=== PATIENT | female | born 1995 | race Caucasian/White ===

== ENCOUNTER 2021-06-05 14:18 | Emergency (ER) | payer SELFPAY ==
--- NOTE | 2021-06-05 14:38 | EDM.PDOC ---
ED HPI GENERAL MEDICAL PROBLEM - General Chief Complaint: LEAD APPLICATION ARCHITECT Problem Stated Complaint: ABDOMINAL PAIN Time Seen by Provider: 06/05/21 14:19 Source of Information: Reports: Patient History Limitations: Reports: No Limitations - History of Present Illness INITIAL COMMENTS - FREE TEXT/NARRATIVE: 26-year-old female no past medical history no past surgical history presents for abdominal pain. Patient was referred from walk-in clinic for potential surgical etiology of pain. Patient notes that she was having some tolerable pain for the last 3 or so days and bilateral lower abdomen/suprapubic area left greater than right. She notes that she had her last menstrual period roughly a week ago but this morning started to notice some spotting and hematuria. Otherwise denies d ysuria. Yesterday evening patient's pain increased to 10 out of 10 and she was up all night. She notes that pain has since improved but is still difficult to manage. She notes the pain is worse when she is pressing on her stomach. Denies any nausea or vomiting. She is sexually active with one partner. Lower Abdominal Pain Score (Numeric/FACES): 6 - Related Data Allergies Allergy/AdvReac Type Severity Reaction Status Date / Time No Known Allergies Allergy Verified 06/05/21 14:49 Home Meds: Home Meds . [No Known Home Meds] 06/05/21 [History] ED ROS GENERAL - Review of Systems Review Of Systems: Comprehensive ROS is negative, except as noted in HPI. ED EXAM, GENERAL - Physical Exam Exam: See Below Exam Limited By: No Limitations General Appearance: Alert, WD/WN, No Apparent Distress Ears: Hearing Grossly Normal Throat/Mouth: Normal Voice, No Airway Compromise Head: Atraumatic, Normocephalic Respiratory/Chest: No Respiratory Distress, Lungs Clear, Normal Breath Sounds, No Accessory Muscle Use Cardiovascular: Normal Peripheral Pulses, Tachycardia GI/Abdominal: Soft, Other (Tenderness to palpation of generalized abdomen, worst pain subjectively in left lower quadrant abdomen and left suprapubic area, positive guarding) Extremities: Normal Inspection Neurological: Alert, Normal Cognition Psychiatric: Normal Affect, Normal Mood Skin Exam: Warm, Dry, Intact, Normal Color Course - Vital Signs Last Recorded V/S: Last Vital Signs Temp 98.0 F 06/05/21 14:44 Pulse 112 H 06/05/21 14:44 Resp 18 06/05/21 14:44 BP 122/81 06/05/21 14:44 Pulse Ox 99 06/05/21 14:44 - Orders/Labs/Meds Orders: Active Orders 24 hr Category Date Time Status Saline Lock Insert [OM.PC] Stat Oth 06/05/21 14:52 Ordered Labs: Laboratory Tests 06/05/21 06/05/21 06/05/21 Range/Units 14:40 14:40 15:00 WBC 17.34 H (4.0-11.0) K/uL RBC 4.45 (4.30-5.90) M/uL Hgb 13.9 (12.0-16.0) g/dL Hct 40.5 (36.0-46.0) % MCV 91.0 (80.0-98.0) fL MCH 31.2 (27.0-32.0) pg MCHC 34.3 (31.0-37.0) g/dL RDW Std Deviation 43.3 (28.0-62.0) fl RDW Coeff of Erna 13 (11.0-15.0) % Plt Count 288 (150-400) K/uL MPV 11.40 (7.40-12.00) fL Neut % (Auto) 78.2 (48.0-80.0) % Lymph % (Auto) 14.6 L (16.0-40.0) % [place] % (Auto) 7.0 (0.0-15.0) % Eos % (Auto) 0.1 (0.0-7.0) % Baso % (Auto) 0.1 (0.0-1.5) % Neut # (Auto) 13.6 H (1.4-5.7) K/uL Lymph # (Auto) 2.5 H (0.6-2.4) K/uL [place] # (Auto) 1.2 H (0.0-0.8) K/uL Eos # (Auto) 0.0 (0.0-0.7) K/uL Baso # (Auto) 0.0 (0.0-0.1) K/uL Nucleated RBC % 0.0 /100WBC Nucleated RBCs # 0 K/uL Sodium (136-145) mmol/L Potassium (3.5-5.1) mmol/L Chloride (98-107) mmol/L Carbon Dioxide (21.0-32.0) mmol/L BUN (7.0-18.0) mg/dL Creatinine (0.6-1.0) mg/dL Est Cr Clr Drug Dosing mL/min Estimated GFR (MDRD) ml/min Glucose (74-106) mg/dL Lactic Acid (0.4-2.0) mmol/L Calcium (8.5-10.1) mg/dL Total Bilirubin (0.2-1.0) mg/dL AST (15-37) IU/L ALT (14-63) IU/L Alkaline Phosphatase (46-116) U/L Total Protein (6.4-8.2) g/dL Albumin (3.4-5.0) g/dL Globulin (2.6-4.0) g/dL Albumin/Globulin Ratio (0.9-1.6) Lipase (73-393) U/L Urine Color YELLOW Urine Appearance CLOUDY Urine pH 8.5 H (5.0-8.0) Ur Specific [place] 1.020 (1.001-1.035) Urine Protein 30 H (NEGATIVE) mg/dL Urine Glucose (UA) NEGATIVE (NEGATIVE) mg/dL Urine Ketones NEGATIVE (NEGATIVE) mg/dL Urine Occult Blood LARGE H (NEGATIVE) Urine Nitrite NEGATIVE (NEGATIVE) Urine Bilirubin NEGATIVE (NEGATIVE) Urine Urobilinogen 4.0 H (<2.0) EU/dL Ur Leukocyte Esterase TRACE H (NEGATIVE) Urine RBC 1-4 (0-2/HPF) Urine WBC 3-5 (0-5/HPF) Ur Epithelial Cells FEW (NONE-FEW) Urine Bacteria 2+ H (NEGATIVE) Urine Mucus LIGHT (NONE-MOD) Urine HCG, Qual NEGATIVE (NEGATIVE) 06/05/21 06/05/21 Range/Units 15:00 15:20 WBC (4.0-11.0) K/uL RBC (4.30-5.90) M/uL Hgb (12.0-16.0) g/dL Hct (36.0-46.0) % MCV (80.0-98.0) fL MCH (27.0-32.0) pg MCHC (31.0-37.0) g/dL RDW Std Deviation (28.0-62.0) fl RDW Coeff of Erna (11.0-15.0) % Plt Count (150-400) K/uL MPV (7.40-12.00) fL Neut % (Auto) (48.0-80.0) % Lymph % (Auto) (16.0-40.0) % [place] % (Auto) (0.0-15.0) % Eos % (Auto) (0.0-7.0) % Baso % (Auto) (0.0-1.5) % Neut # (Auto) (1.4-5.7) K/uL Lymph # (Auto) (0.6-2.4) K/uL [place] # (Auto) (0.0-0.8) K/uL Eos # (Auto) (0.0-0.7) K/uL Baso # (Auto) (0.0-0.1) K/uL Nucleated RBC % /100WBC Nucleated RBCs # K/uL Sodium 138 (136-145) mmol/L Potassium 4.1 (3.5-5.1) mmol/L Chloride 104 (98-107) mmol/L Carbon Dioxide 22.9 (21.0-32.0) mmol/L BUN 10 (7.0-18.0) mg/dL Creatinine 0.8 (0.6-1.0) mg/dL Est Cr Clr Drug Dosing 92.83 mL/min Estimated GFR (MDRD) > 60.0 ml/min Glucose 101 (74-106) mg/dL Lactic Acid 0.5 (0.4-2.0) mmol/L Calcium 8.7 (8.5-10.1) mg/dL Total Bilirubin 1.0 (0.2-1.0) mg/dL AST 39 H (15-37) IU/L ALT 41 (14-63) IU/L Alkaline Phosphatase 73 (46-116) U/L Total Protein 7.1 (6.4-8.2) g/dL Albumin 3.4 (3.4-5.0) g/dL Globulin 3.7 (2.6-4.0) g/dL Albumin/Globulin Ratio 0.9 (0.9-1.6) Lipase 51 L (73-393) U/L Urine Color Urine Appearance Urine pH (5.0-8.0) Ur Specific [place] (1.001-1.035) Urine Protein (NEGATIVE) mg/dL Urine Glucose (UA) (NEGATIVE) mg/dL Urine Ketones (NEGATIVE) mg/dL Urine Occult Blood (NEGATIVE) Urine Nitrite (NEGATIVE) Urine Bilirubin (NEGATIVE) Urine Urobilinogen (<2.0) EU/dL Ur Leukocyte Esterase (NEGATIVE) Urine RBC (0-2/HPF) Urine WBC (0-5/HPF) Ur Epithelial Cells (NONE-FEW) Urine Bacteria (NEGATIVE) Urine Mucus (NONE-MOD) Urine HCG, Qual (NEGATIVE) Meds: Medications Discontinued Medications Generic Name Dose Route Start Last Admin Trade Name Freq PRN Reason Stop Dose Admin Iopamidol 100 ml 06/05/21 17:35 06/05/21 17:35 Iopamidol 755 Mg/Ml 500 Ml Multipack Bottle IVPUSH 06/05/21 17:36 100 ml ONETIME STA Administration Ketorolac Tromethamine 15 mg 06/05/21 14:59 06/05/21 15:05 Ketorolac 30 Mg/Ml Sdv IVPUSH 06/05/21 15:00 15 mg ONETIME ONE Administration - Re-Assessments/Exams Free Text/Narrative Re-Assessment/Exam: 06/05/21 14:56 Patient was offered but declines analgesia or antiemetic. Will get labs, urinalysis, urine testing. Will get pelvic ultrasound to rule out ovarian torsion, ovarian cyst, ectopic . If unremarkable patient may require CT imaging considering her guarding on exam. 06/05/21 15:00 On reassessment patient is amenable to Toradol; she has a strong family history of addiction and would like to avoid narcotic analgesics. 06/05/21 15:04 Urine testing is negative. Will follow up labs as well as pelvic ultrasound trolled ovarian torsion. 06/05/21 17:11 Irregular simple ovarian cyst 2.0 cm on ultrasonography. However given the leukocytosis and patient's guarding will get CT imaging to rule out more emergent causes of pain 06/05/21 18:49 CT imaging again reveals small left ovarian cyst with small amount of free fluid in the hemipelvis on the right side, however, no emergent intra-abdominal pathology. Patient symptoms likely secondary to ovarian cyst. Will discharge with LEAD APPLICATION ARCHITECT follow-up. Departure - Departure Time of Disposition: 18:49 Disposition: Home, Self-Care 01 Condition: Good Clinical Impression: Ovarian cyst Qualifiers: Laterality: left Qualified Code(s): N83.202 - Unspecified ovarian cyst, left side - Discharge Information Instructions: Ovarian Cyst Referrals: PCP,None [Primary Care Provider] - Forms: ED Department Discharge Additional Instructions: Your ultrasound and CT imaging show a left ovarian cyst. No evidence of appendicitis or other intra-abdominal problems. You can take Motrin or Tylenol at home to help with your pain symptoms. I would certainly recommend following up with an LEAD APPLICATION ARCHITECT if you do not already have one to discuss treatment options for ovarian cyst. [facility] [address] [place] [address] [id number] [facility] [address] [place] [id number] The following information is given to patients seen in the emergency department who are being discharged to home. This information is to outline your options for follow-up care. We provide all patients seen in our emergency department with a follow-up referral. The need for follow-up, as well as the timing and circumstances, are variable depending upon the specifics of your emergency department visit. If you don't have a primary care physician on staff, we will provide you with a referral. We always advise you to contact your personal physician following an emergency department visit to inform them of the circumstance of the visit and for follow-up with them and/or the need for any referrals to a consulting specialist. The emergency department will also refer you to a specialist when appropriate. T his referral assures that you have the opportunity for follow-up care with a specialist. All of these measure are taken in an effort to provide you with optimal care, which includes your follow-up. Under all circumstances we always encourage you to contact your private physician who remains a resource for coordinating your care. When calling for follow-up care, please make the office aware that this follow-up is from your recent emergency room visit. If for any reason you are refused follow-up, please contact the [facility] Emergency Department at and asked to speak to the emergency department charge nurse. Please follow up with your primary care physician. If you do not have a primary care physician, see below: [facility] [address], [place] [address] [facility] [address] [place] [address] [facility] [address] [place] [address] Sepsis Event Note (ED) - Focused Exam Vital Signs: Vital Signs Temp Pulse Resp BP Pulse Ox 06/05/21 14:44 98.0 F 112 H 18 122/81 99 - My Orders Last 24 Hours: My Active Orders 06/05/21 14:52 Saline Lock Insert [OM.PC] Stat - Assessment/Plan Last 24 Hours: My Active Orders 06/05/21 14:52 Saline Lock Insert [OM.PC] Stat
[2021-06-05] MEDS ORDERED: Ketorolac 30 MG/ML SDV IVPUSH ONE (14:59)
[2021-06-05 15:47] LABS: BLOOD UREA NITROGEN,BUN 10 mg/dL (7.0-18.0); CARBON DIOXIDE,CO2 22.9 mmol/L (21.0-32.0); CHLORIDE,CL 104 mmol/L (98-107); GLUCOSE RANDOM 101 mg/dL (74-106); LIPASE 51 U/L (73-393); POTASSIUM,K 4.1 mmol/L (3.5-5.1); SODIUM,NA 138 mmol/L (136-145)
--- NOTE | 2021-06-05 17:10 | US ---
INDICATION: Lower abdominal pain and spotting. Possible torsion. COMPARISON: None available. FINDINGS: Transvaginal and transabdominal ultrasound examination of the female pelvis was performed. Initial examination is performed with transabdominal technique and transvaginal technique is used for better visualization of the pelvic structures. The uterus is anteverted with no evidence of mass. It measures 8.7 x 5.6 x 5.0 cm. The endometrial lining is mildly increased in thickness at 12 mm. Incidental note is made of nabothian cysts in the cervix. Two follicular cysts are seen in the right ovary, measuring up to 0.9 centimeters in diameter. There is an irregular simple cyst in the left ovary measuring 2.0 x 1.1 x 1.8 centimeters. This could be an involuting dominant follicular cyst. The ovaries are normal in size, the right measuring 3.2 x 2.1 x 2.2 cm and the left measuring 3.2 x 2.5 x 2.1 cm. There is normal color and pulse doppler flow in both ovaries. There is no sign of free fluid in the pelvis. IMPRESSION: Irregular simple cyst seen in the left ovary measuring up to 2.0 centimeters in diameter. Mild thickening of the endometrial lining, probably related to the patient`s menstrual cycle. Dictated by Lei Miller MD @ 06/05/2021 5:07:47 PM (Electronically Signed)
[2021-06-05] MEDS ORDERED: Iopamidol 755 MG/ML 500 ML Multipack Bottle IVPUSH STA (17:35)
--- NOTE | 2021-06-05 18:48 | CT ---
Indication: Left ovarian cyst on ultrasound. Bilateral lower abdominal pain. Technique: Multiple contiguous axial images were obtained from the lung bases through the symphysis pubis after the intravenous administration of 100 cc [id number] Please note that all CT scans at this facility use dose modulation, iterative reconstruction, and/or weight-based dosing when appropriate to reduce radiation dose to as low as reasonably achievable. Comparison: US from today. Findings: 5 mm nodule in the left lobe, which is seen on image 23, series 201. 2 mm nodule in the right lower lobe, best seen on image 16, series 201. The heart is normal in size. The liver, gallbladder, spleen, adrenals, pancreas, and kidneys are normal. No intrahepatic biliary ductal is identified. No hydronephrosis is identified. In the pelvis, the uterus is grossly normal. Probable small cyst is identified and the left ovary. A small amount of free fluid is identified in the right hemipelvis. The urinary bladder is normal. Small and large bowel are normal in caliber. No free air is identified within the abdomen or pelvis. The aorta is normal in caliber. No lytic or blastic lesions of the spine are identified. Mild colonic diverticulosis is identified. No lytic or blastic lesions of the spine are identified. Impression: Small left ovarian cyst. Small amount of free fluid identified in the right hemipelvis. Bilateral lower lobe nodules. Follow-up should be performed according to the Fleischner society criteria Please note that all CT scans at this facility use dose modulation, iterative reconstruction, and/or weight-based dosing when appropriate to reduce radiation dose to as low as reasonably achievable. Dictated by Bonny Wen MD @ 06/05/2021 6:46:26 PM (Electronically Signed)
== END 2021-06-05 18:56 | disposition home or self-care (01) ==
LOC: MW.ED 14:18
DX: N83.202 Unspecified ovarian cyst, left side (principal)
CPT/HCPCS: 74177; 76857; 80053; 81001; 81025; 83605; 83690; 85025; 96374; 99284; J1885; Q9967